=== PATIENT | female | born 1945 | race African-American/Black ===

== ENCOUNTER 2017-09-30 13:51 | Inpatient (IN) | payer OTHER ==
[~2017-09-30] VITALS: Ht 172.7 cm; Wt 77.0 kg
--- NOTE | 2017-09-30 14:16 | NUR ---
PT BROUGHT TO ROOM BY WHEELCHAIR AND MADE COMFORTABLE IN BED. PT WITH C/O LUQ ABD PAIN RADIATING UP TO LT CHEST SINCE 2AM. PT DESCRIBES PAIN 9/10 PRESSURE LIKE PAIN INCREASED WITH DEEP BREATHING. AT BEDSIDE.
[2017-09-30 14:59] LABS: BASOPHIL % 0.3 % (0-2); PLATELET COUNT 321 x10^3mcL (130-400); RED CELL DISTRIBUTION WIDTH 14.3 % (11.5-14.5)
[2017-09-30 15:04] LABS: CALCIUM 9.2 mg/dL (8.5-10.1); CARBON DIOXIDE 26.7 mmol/L (21-32); CHLORIDE SERUM 101 mmol/L (98-107); CREATININE SERUM 0.8 mg/dL (0.6-1.0); GLUCOSE SERUM 124 mg/dL (74-106); POTASSIUM SERUM 3.5 mmol/L (3.5-5.1); SODIUM SERUM 137 mmol/L (136-145)
[2017-09-30 15:10] LABS: ALKALINE PHOSPHATASE 87 U/L (46-116); ALT/SGPT 9 U/L (14-59); AST/SGOT 16 U/L (15-37); BILIRUBIN TOTAL 0.55 mg/dL (0.20-1.00); LIPASE 108 IU/L (73-393); TRIGLYCERIDES 93 mg/dL (<150)
[2017-09-30 15:17] LABS: TOTAL PROTEIN, SERUM 8.6 g/dL (6.4-8.2)
[2017-09-30 15:18] LABS: ALBUMIN 3.2 g/dL (3.4-5.0); CHOLESTEROL 201 mg/dL (<200); CHOLESTEROL/HDL RATIO 2.8; HDL CHOLESTEROL 71 mg/dL (40-60); T3 TOTAL 1.03 ng/mL
--- NOTE | 2017-09-30 15:39 | NUR ---
PT RESTING IN BED WITH AT BEDSIDE. PT STATED HAVING SOME RELEIF OF PAIN, NOW 5/10.
--- NOTE | 2017-09-30 16:00 | NUR ---
DR MORTON INFORMED OF PT UNABLE TO GIVE URINE SAMPLE AT THIS TIME, STATED IT WASN'T URGENT TO GET SAMPLE AT THIS TIME.
[2017-09-30] MEDS ORDERED: METFORMIN HYDR500 M1 PO (16:29)
[2017-09-30] MEDS ORDERED: AMLODIPINE BESYL5 M2 PO (16:30)
[2017-09-30] MEDS ORDERED: ASPIR 8181 MG PO (16:30)
--- NOTE | 2017-09-30 16:31 | NUR ---
PT RESTING IN BED WITH AT BEDSIDE WITH NO SIGNS OF DISTRESS AT THIS TIME.
[2017-09-30 16:46] LABS: FREE T4 1.05 ng/dL (0.76-1.46); FREE THYROXINE INDEX 2.3 ug/dL (1.4-4.5); T4(THYROXINE) 6.9 ug/dL (4.7-13.3)
--- NOTE | 2017-09-30 16:46 | NUR ---
REPORT GIVEN TO HANS BARRIOS.
[2017-09-30 16:58] LABS: MAGNESIUM 1.8 mg/dL (1.8-2.4); PHOSPHOROUS 2.7 mg/dL (2.5-4.9)
[2017-09-30 17:07] VITALS: BP 182/83
--- NOTE | 2017-09-30 17:16 | NUR ---
RECEIVED PATIENT FROM ED VIA GUERNEY, PATIENT ALERT AND ORIENTED, TELE # 1 SR, IV ACCESS TO RAC WNL, C/O PAIN TO CHEST WHEN TAKING DEEP BREATHS, WILL MEDICATE ORDERED, ORIENTED PATIENT TO ROOM AND SURROUNDINGS, BED IN LOW POSITION, BED RAILS UP X 2, CALL LIGHT WITHIN REACH, WILL ENDORSE CARWE TO PRIMARY NURSE MARIA T BARRIOS
--- NOTE | 2017-09-30 18:23 | NUR ---
DR. HOWELL AWARE OF PATIENT'S B/P = 182/83. DR. HOWELL SAID,"TO WAIT FOR NEW ORDER".
--- NOTE | 2017-09-30 18:50 | NUR ---
NORVASC 5MG AND METOPPROLOL 12.5MG PO GIVEN FOR HTN. DR. HOWELL NOTIFIED. PATIENT STATED CHEST PAIN DECREASED TO TOLERATED LEVEL. PATIENT HAD DINNER. NEW ORDER OF PULMONARY -ANGIO RECEIVED. WILL INSERTION 20G NEEDLE.
[2017-09-30 19:14] VITALS: BP 148/72
--- NOTE | 2017-09-30 19:15 | NUR ---
RECHECKED B/P =148/72; P = 77; O2 SAT 100% ON 2L VIA N/C. ENDORSED CARE TO [facility] NURSE.
--- NOTE | 2017-09-30 20:00 | NUR ---
PT AWAKE, A/O X3. PT REPORTS NO DISCOMFORT OR PAIN AT THIS TIME. NO DISTRESS NOTED. PT REPORTS NO CHEST PAIN, DIZZINESS, REYNOLDS OR SOB AT THIS TIME. PT IS ON 2L/NC PER MD ORDER. IV TO LFA AND RAC INTACT AND PATENT. HEPARIN DRIP INITIATED AT 1952, PT EDUCATED ON SAFETY AND BLEEDING PRECAUTIONS. PT CURRENTLY NPO FOR PULMONARY ANGIOGRAM CT SCAN SCHEDULED TONIGHT. ALL SAFETY MEASURES ENSURED. CALL LIGHT AND PERSONAL BELONGINGS WITHIN REACH. WILL CONTINUE TO MONITOR.
[2017-09-30 21:16] VITALS: BP 159/63
--- NOTE | 2017-09-30 23:00 | NUR ---
PT LEFT WITH INFORMATICS EDUCATOR TO CT. NO DISTRESS NOTED.
--- NOTE | 2017-09-30 23:30 | NUR ---
PT ARRIVED BACK FROM RADIOLOGY FOR PULMONARY ANGIOGRAM. PT IN STABLE CONDITION. NO DISTRESS NOTED. PT ARRIVED BACK WITH SWELLING TO IV SITE IN LFA. PT REPORTS NO PAIN AT SITE. NO REDNESS OR WARMTH NOTED. ELEVATED EXTREMITY AND APPLIED ICE. WILL CONTINUE TO MONITOR.
--- NOTE | 2017-10-01 04:36 | NUR ---
PTT LEVEL 77.9 RECEIVED. REDUCED INFUSION BY 200 UNITS/HR. HEPARIN DRIP AT 1200 UNITS PER HR INFUSING AT THIS TIME. WILL RECHECK PTT LEVEL AT 0820
[2017-10-01 05:13] VITALS: BP 174/90
[2017-10-01 06:08] LABS: SODIUM SERUM 135 mmol/L (136-145)
[2017-10-01 06:17] LABS: BASOPHIL % 0.2 % (0-2); PLATELET COUNT 243 x10^3mcL (130-400); RED CELL DISTRIBUTION WIDTH 14.2 % (11.5-14.5)
[2017-10-01 06:46] LABS: CALCIUM 8.6 mg/dL (8.5-10.1); CARBON DIOXIDE 25.6 mmol/L (21-32); CHLORIDE SERUM 101 mmol/L (98-107); CREATININE SERUM 0.9 mg/dL (0.6-1.0); GLUCOSE SERUM 102 mg/dL (74-106); POTASSIUM SERUM 4.1 mmol/L (3.5-5.1)
--- NOTE | 2017-10-01 07:25 | NUR ---
RECEIVED PATIENT AWAKE/ALERT IN BED NO DISTRESS NOTED; LT CHEST PAIN IS 4/10 LAST MEDICATED AT 0424; IV X 2 TO LFA/LAC INTACT AND PATENT. HEPARIN D/C BY OUTSIDE RESIDENTIAL SALES PROFESSIONAL NURSE. POC EXPLAINED. CALL LIGHT AND BEDSIDE TABLE WITHIN REACH.
--- NOTE | 2017-10-01 07:42 | NUR ---
PT RESTED WELL THROUGHOUT NIGHT. NO DISTRESS NOTED. DILAUDID PO 2 MG GIVEN X2 FOR PAIN. NO S/SX OF BLEEDING NOTED. ALL NEEDS MET. ALL SAFETY MEASURES ENSURED. CALL LIGHT WITHIN REACH. ENDORSED CARE TO AM NURSE.
[2017-10-01 08:05] LABS: AMPHETAMINE QUAL UR NONE DETECTED (NEG <=1000)
[2017-10-01 08:14] LABS: microscopic required? YES; urine erythrocyte TRACE (NEGATIVE)
--- NOTE | 2017-10-01 08:40 | NUR ---
PATIENT LAYING IN BED CRYING C/O LT SIDE OF CHEST PRESSURE PAIN WITH BREATHING; DR. PATRICIO WITH MEDICAL TEAMS ROUND AT THIS TIME; DISCUSS POC; PAIN MAMNAGEMENT; AND CONSULT DR. LIU FOR CARDIO. NEW ORDER TORADOL FOR PAIN. ORDER CARRY OUT.
--- NOTE | 2017-10-01 08:47 | NUR ---
PATIENT LAYING IN BED HOB 35 DEGREE, ON O2 2LNC; REPORT PRESSURE TO LT LATERAL SIDE OF CHEST PAIN 9/10 ONLY WHEN PATIENT BREATHE IN; COMES AND GO. TORADOL 30MG IVP GIVEN; PATIENT RESTING IN BED WITH EYES CLOSED, NO APPEARS NO ACUTE DISTRESS; CONT TO MONITOR.
--- NOTE | 2017-10-01 09:34 | NUR ---
PATIENT LAYING IN BED HOB REMAIN ELEVATED; PATIENT STATE FEEL A BIT BETTER PAIN IS NOT SHARP LIKE BEFORE 06/24; ALL DUE MEDS GIVEN; NEEDS ANTICIPATED. CONT TO MONITOR.
[2017-10-01 09:42] VITALS: BP 152/62
--- NOTE | 2017-10-01 10:12 | NUR ---
PATIENT REFUSED ECHOCARDIOGRAM-STATES SHE IS FEELING BETTER AND DOES NOT NEED IT
--- NOTE | 2017-10-01 10:30 | NUR ---
PATIENT RESTING IN BED NO DISTRESS NOTED; PATIENT STATE PAIN IS GONE AFTER MEDICATION; WANT TO GO HOME. INFORM PATIENT IF WANT TO LEAVE; PATIENT HAVE TO SIGN AMA; PER PATIENT WILL WAIT UNTIL DOCTOR RELEASE HER. NEEDS ANTICIPATED.
[2017-10-01 11:35] VITALS: BP 152/62
--- NOTE | 2017-10-01 11:37 | NUR ---
PATIENT SLEEPING AROUSABLE DISTRESS NOTED, NO COMPLAINTS AT THIS TIME. DENIES SOB. SOLUMEDROL 40MG IVP GIVEN TO RFA ORDERED. BS 106 NO COVERAGE NEEDED. CONT TO MONITOR.
[2017-10-01 13:26] VITALS: BP 154/77
--- NOTE | 2017-10-01 14:54 | NUR ---
PATIENT SAT UP AT SIDE OF BED NO COMPLAINT, TOWELS AND NEW GOWN GIVEN PER REQUEST; IVF REPLACED. NEEDS ATTENDED. CONT TO MONITOR.
--- NOTE | 2017-10-01 17:08 | NUR ---
PATIENT RESTING IN BED NO COMPLAINT, LEVAQUIN 750MG IVPB STARTED; DUE MEDS GIVEN. BS 255 GIVE 9 UNITS HUMULIN R SQ; NEEDS ANTICIPATED.
[2017-10-01 17:30] VITALS: BP 163/77
--- NOTE | 2017-10-01 17:56 | NUR ---
PATIENT ACCIDENTLY KNOCK OUT HER IV; RE-INSERTED NEW IV TO LFA # 22G CONT ABX AND IVF ORDERED. PATIENT SAT UP EATING HER DINNER. NEEDS ANTICIPATED.
--- NOTE | 2017-10-01 19:09 | NUR ---
RECEIVED A BEDSIDE REPORT, SEEN PATIENT AAOX4. DENIES CHEST PAIN OR CHEST PRESSURE AT THIS TIME. NSR ON TELE#1. BREATHING EASY ON ROOM AIR. STS ABLE TO WALK TO THE BATHROOM WITHOUT ANY DIFFICULTY. IVF NS TO LT WRIST INFUSING WELL AT 100ML/HR. PLAN OF CARE DISCUSSED. CALL LIGHT PLACED WITHIN EASY REACH, SIDERAILS UP X2.
[2017-10-01 21:26] VITALS: BP 143/67
--- NOTE | 2017-10-01 22:00 | NUR ---
BEDTIME MEDS GIVEN, SANDWICH PROVIDED PER PATIENT'S REQUESTED. IVF NS INFUSING WELL.
[2017-10-02 05:58] VITALS: BP 169/91
--- NOTE | 2017-10-02 06:40 | NUR ---
SLEPT WELL THROUGHOUT THE SHIFT. DENIES CHEST PAIN. BRP. IVF NS TO LT WRIST INFUSING WELL.
--- NOTE | 2017-10-02 07:30 | NUR ---
PT AWAKE, ALERT, ORIENTED. DENIES PAIN AT THIS TIME, IN NO APPARENT DISTRESS. WATCHING TV. STATES " IM READY TO BE DISCHARGED." LUNG SOUNDS CLEAR TO AUSCULTATION IN ALL LOBES, DENIES SOB. ON ROOM AIR. HRRR, PULSES STRONG THROUGHOUT UPPER AND LOWER EXTREMITIES. CAP REFILL <3 SECS THROUGHOUT. ABDOMEN SOFT, ROUND, NONTENDER, BOWEL SOUNDS ACTIVE X4. IV SITE CDI. BED IN LOWEST POSITION, CALL LIGHT WITHIN REACH, 2 RAILS UP.
[2017-10-02 07:55] LABS: PLATELET COUNT 272 x10^3mcL (130-400)
[2017-10-02 07:58] LABS: CALCIUM 9.6 mg/dL (8.5-10.1); CARBON DIOXIDE 23.5 mmol/L (21-32); CHLORIDE SERUM 104 mmol/L (98-107); CREATININE SERUM 0.8 mg/dL (0.6-1.0); GLUCOSE SERUM 158 mg/dL (74-106); MAGNESIUM 1.9 mg/dL (1.8-2.4); PHOSPHOROUS 2.2 mg/dL (2.5-4.9); POTASSIUM SERUM 4.2 mmol/L (3.5-5.1); SODIUM SERUM 136 mmol/L (136-145)
[2017-10-02 07:59] LABS: BASOPHIL % 0 % (0-2)
--- NOTE | 2017-10-02 08:24 | NUR ---
PT COMPLETED 90% OF MEAL. CURRENTLY WATCHING TV. BED IN LOWEST POSITION, CALL LIGHT WITHIN REACH, 2 RAILS UP.
[2017-10-02 10:02] VITALS: BP 181/86
--- NOTE | 2017-10-02 10:35 | NUR ---
PT AWAKE, ALERT, ORIENTED. DENIES CHEST PAIN, SOB, OR PRESSURE. GAVE NITROSTAT SL ORDERED FOR HTN OF 181/86.
[2017-10-02 11:07] VITALS: BP 169/67
[2017-10-02] MEDS ORDERED: ATORVASTATIN CA20 M1 PO (11:07)
[2017-10-02] MEDS ORDERED: MOT800 PO (11:08)
[2017-10-02] MEDS ORDERED: LEVAQUIN750 MG PO (11:09)
[2017-10-02] MEDS ORDERED: LAC PO (11:10)
[2017-10-02] MEDS ORDERED: LISINOPRIL10 MG PO (11:28)
--- NOTE | 2017-10-02 11:35 | NUR ---
SPOKE WITH DR. SENA ABOUT SBP OF 169/67 AFTER GIVING NITRO, STATED TO GIVEN LISINOPRIL 5MG. AWAITING ORDER TO BE INPUTTED.
[2017-10-02 11:38] VITALS: BP 169/67
--- NOTE | 2017-10-02 11:55 | NUR ---
ADMINISTERED LISINOPRIL 5MG ORDERED FOR HTN.
--- NOTE | 2017-10-02 12:40 | NUR ---
PT SITTING AT BEDSIDE EATING LUNCH. AT BEDSIDE. BED IN LOWEST POSITION, CALL LIGHT WITHIN REACH, 2 RAILS UP.
[2017-10-02 13:01] VITALS: BP 168/83
--- NOTE | 2017-10-02 14:33 | NUR ---
RECHECKED BP, CURRENTLY 165/66. PT DENIES DENIES PAIN, CHEST PRESSURE, OR SOB. AT BEDSIDE, PT EAGERLY AWAITING DISCHARGE.
[2017-10-02 14:34] VITALS: BP 165/66
--- NOTE | 2017-10-02 14:40 | NUR ---
SPOKE TO DR. SENA ABOUT BP OF 165/66, DR. SENA STATED IT IS FINE TO DISCHARGE PATIENT.
--- NOTE | 2017-10-02 15:05 | NUR ---
PATIENT DISCHARGE VIA WHEELCHAIR TO FRONT LOBBY. IV CATHETER DC'D, CATHER TIP INTACT. DISCHARGE INFORMATION PROVIDED TO PATIENT. WILL BE DRIVING PATIENT HOME.
== END 2017-10-02 15:09 | disposition home or self-care (01) | DRG 205 ==
LOC: ED 13:51 → DU 16:19 → ED 16:21 → DU 16:55
PROVIDERS: Specialist; ADMIT Family Medicine Sports Medicine
DX: M94.0 Chondrocostal junction syndrome [Tietze] (principal); N17.0 Acute kidney failure with tubular necrosis; D68.69 Other thrombophilia; N39.0 Urinary tract infection, site not specified; E44.0 Moderate protein-calorie malnutrition; E11.51 Type 2 diabetes mellitus with diabetic peripheral angiopathy without gangrene; E11.65 Type 2 diabetes mellitus with hyperglycemia; E66.3 Overweight; I10 Essential (primary) hypertension; E78.5 Hyperlipidemia, unspecified; M06.9 Rheumatoid arthritis, unspecified; Z79.82 Long term (current) use of aspirin; Z68.25 Body mass index [BMI] 25.0-25.9, adult; Z87.891 Personal history of nicotine dependence; Z79.84 Long term (current) use of oral hypoglycemic drugs
CPT/HCPCS: 83880; 84439; 85378; 94150; J1644; J1885; J1956; J2405; J2920; J3010; J7030; J7620; Q0092; Q9967

== ENCOUNTER 2018-11-12 15:59 | Inpatient (IN) | payer OTHER ==
[~2018-11-12] VITALS: Ht 172.7 cm; Wt 79.0 kg
[~2018-11-12 15:59] MED LIST: AMLODIPINE BESYL5 M2 PO; ASPIR 8181 MG PO; ATORVASTATIN CA20 M1 PO; LAC PO; LEVAQUIN750 MG PO; LISINOPRIL10 MG PO; METFORMIN HYDR500 M1 PO; MOT800 PO
[2018-11-12 17:41] LABS: BASOPHIL % 0.4 % (0-2); PLATELET COUNT 301 x10^3mcL (130-400)
[2018-11-12 17:48] LABS: CARBON DIOXIDE 26.1 mmol/L (21-32); CHLORIDE SERUM 101 mmol/L (98-107); CREATININE SERUM 0.9 mg/dL (0.6-1.0); GLUCOSE SERUM 155 mg/dL (74-106); POTASSIUM SERUM 3.6 mmol/L (3.5-5.1); SODIUM SERUM 137 mmol/L (136-145)
[2018-11-12 17:56] LABS: RED CELL DISTRIBUTION WIDTH 14.6 % (11.5-14.5)
[2018-11-12 17:59] LABS: ALBUMIN 3.4 g/dL (3.4-5.0); ALKALINE PHOSPHATASE 104 U/L (46-116); ALT/SGPT 12 U/L (14-59); AMYLASE 75 U/L (25-115); AST/SGOT 13 U/L (15-37); BILIRUBIN TOTAL 0.27 mg/dL (0.20-1.00); CHOLESTEROL 178 mg/dL (<200); HDL CHOLESTEROL 63 mg/dL (40-60); LIPASE 151 IU/L (73-393); MAGNESIUM 1.7 mg/dL (1.8-2.4); TOTAL PROTEIN, SERUM 8.3 g/dL (6.4-8.2)
[2018-11-12 18:04] LABS: microscopic required? YES; urine erythrocyte NEGATIVE (NEGATIVE)
[2018-11-12 19:00] LABS: AMPHETAMINE QUAL UR NONE DETECTED (See below)
[2018-11-12 23:24] VITALS: BP 127/72
[2018-11-12 23:26] VITALS: Ht 172.7 cm; Wt 79.0 kg
[2018-11-13 05:43] VITALS: BP 130/67
[2018-11-13 06:32] LABS: ALKALINE PHOSPHATASE 92 U/L (46-116); ALT/SGPT 11 U/L (14-59); AST/SGOT 13 U/L (15-37); BASOPHIL % 0.2 % (0-2); BILIRUBIN TOTAL 0.33 mg/dL (0.20-1.00); CALCIUM 8.9 mg/dL (8.5-10.1); CARBON DIOXIDE 24.1 mmol/L (21-32); CHLORIDE SERUM 99 mmol/L (98-107); CREATININE SERUM 1.2 mg/dL (0.6-1.0); GLUCOSE SERUM 159 mg/dL (74-106); MAGNESIUM 2.5 mg/dL (1.8-2.4); PHOSPHOROUS 4.7 mg/dL (2.5-4.9); PLATELET COUNT 297 x10^3mcL (130-400); POTASSIUM SERUM 3.8 mmol/L (3.5-5.1); RED CELL DISTRIBUTION WIDTH 14.3 % (11.5-14.5); SODIUM SERUM 135 mmol/L (136-145); TOTAL PROTEIN, SERUM 7.9 g/dL (6.4-8.2)
[2018-11-13 06:52] LABS: ALBUMIN 3.3 g/dL (3.4-5.0)
[2018-11-13 08:29] VITALS: BP 116/66
[2018-11-13 12:03] VITALS: BP 145/74
[2018-11-13 16:12] VITALS: BP 132/68
[2018-11-13 21:03] VITALS: BP 161/82
[2018-11-14 05:21] VITALS: BP 146/75
[2018-11-14 06:27] LABS: BASOPHIL % 0.3 % (0-2); PLATELET COUNT 283 x10^3mcL (130-400)
[2018-11-14 06:40] LABS: RED CELL DISTRIBUTION WIDTH 14.8 % (11.5-14.5)
[2018-11-14 06:56] LABS: CALCIUM 9.3 mg/dL (8.5-10.1); CARBON DIOXIDE 23.9 mmol/L (21-32); CHLORIDE SERUM 100 mmol/L (98-107); CREATININE SERUM 1.2 mg/dL (0.6-1.0); GLUCOSE SERUM 118 mg/dL (74-106); POTASSIUM SERUM 3.8 mmol/L (3.5-5.1); SODIUM SERUM 134 mmol/L (136-145)
[2018-11-14 09:44] VITALS: BP 162/76
[2018-11-14 09:46] VITALS: BP 117/73
[2018-11-14 12:24] VITALS: BP 163/86
[2018-11-14 16:45] VITALS: BP 168/85
[2018-11-14 21:47] VITALS: BP 150/60
[2018-11-15 06:18] VITALS: BP 150/80
[2018-11-15 06:32] LABS: BASOPHIL % 0.3 % (0-2); PLATELET COUNT 296 x10^3mcL (130-400)
[2018-11-15 06:42] LABS: RED CELL DISTRIBUTION WIDTH 14.6 % (11.5-14.5)
[2018-11-15 07:05] LABS: ALKALINE PHOSPHATASE 91 U/L (46-116); ALT/SGPT 11 U/L (14-59); AST/SGOT 12 U/L (15-37); BILIRUBIN DIRECT 0.08 mg/dL (0.0-0.2); BILIRUBIN TOTAL 0.2 mg/dL (0.20-1.00); CALCIUM 9.8 mg/dL (8.5-10.1); CARBON DIOXIDE 23.8 mmol/L (21-32); CHLORIDE SERUM 101 mmol/L (98-107); CREATININE SERUM 0.9 mg/dL (0.6-1.0); GLUCOSE SERUM 125 mg/dL (74-106); POTASSIUM SERUM 3.7 mmol/L (3.5-5.1); SODIUM SERUM 135 mmol/L (136-145); TOTAL PROTEIN, SERUM 8.1 g/dL (6.4-8.2)
[2018-11-15 07:11] LABS: ALBUMIN 3.2 g/dL (3.4-5.0)
[2018-11-15 08:34] VITALS: BP 157/85
[2018-11-15 12:42] VITALS: BP 157/85
== END 2018-11-15 14:28 | disposition short-term general hospital (02) | DRG 64 ==
LOC: ED 15:59 → DU 21:36
PROVIDERS: Emergency Medicine; Internal Medicine; Internal Medicine Pulmonary Disease; ADMIT Internal Medicine Pulmonary Disease
DX: I63.40 Cerebral infarction due to embolism of unspecified cerebral artery (principal); I50.43 Acute on chronic combined systolic (congestive) and diastolic (congestive) heart failure; G81.94 Hemiplegia, unspecified affecting left nondominant side; I16.1 Hypertensive emergency; I11.0 Hypertensive heart disease with heart failure; E11.9 Type 2 diabetes mellitus without complications; M32.9 Systemic lupus erythematosus, unspecified; M06.9 Rheumatoid arthritis, unspecified; Z87.891 Personal history of nicotine dependence
CPT/HCPCS: 82962; 83880; 97116-GP; 97530-GP; J0696; J1885; J1940; J3475; J3490; Q0092

== ENCOUNTER 2019-02-22 15:50 | Observation (INO) | payer OTHER | END 2019-02-23 13:07 | disposition home or self-care (01) | LOC: ED 15:50 → DU 22:54 → ED 15:50 → DU 21:51 → ED 15:50 → DU 21:51 → ED 15:50 → DU 21:51 → ED 15:50 → DU 22:54 → ED 15:50 → DU 02-23 13:07 ==